=== PATIENT | male | born 1955 | race African-American/Black ===

== ENCOUNTER 2022-01-08 11:15 | Emergency (ER) | payer MEDICARE ==
[~2022-01-08] VITALS: Ht 193 cm; Wt 76.0 kg
[2022-01-08 12:50] LABS: BASOPHILS % 0.5 % (0.0-2.0); EOSINOPHILS % 3.9 % (0.0-5.0); HEMATOCRIT. 29.7 % (42.0-52.0); LYMPHOCYTES % 7.8 % (20.0-50.0); MEAN CORPUSCULAR HEMOGLOBIN 28.8 pg (28.0-32.0); MEAN CORPUSCULAR VOLUME 85.9 fL (80.0-94.0); MEAN PLATELET VOLUME 8.1 fl (7.4-10.4); MONOCYTES % 5.2 % (2.0-8.0); NEUTROPHILS % 82.6 % (40.0-76.0); PLATELET 234 x1000/uL (130-400); RED BLOOD CELL COUNT 3.46 mill/uL (4.7-6.1); RED CELL DISTRIBUTION WIDTH 13.2 % (11.6-14.6)
[2022-01-08 12:54] LABS: CHLORIDE 100 mEq/L (98-107)
[2022-01-08] MEDS ORDERED: KETOROLAC 15MG/ML VIAL IV ONE (14:30)
[2022-01-08 16:11] VITALS: BP 117/71
== END 2022-01-08 16:14 | disposition home or self-care (01) ==
LOC: ER 11:15
DX: C64.2 Malignant neoplasm of left kidney, except renal pelvis (principal); C79.72 Secondary malignant neoplasm of left adrenal gland; J98.4 Other disorders of lung; N40.0 Benign prostatic hyperplasia without lower urinary tract symptoms; F17.210 Nicotine dependence, cigarettes, uncomplicated; Z71.6 Tobacco abuse counseling
CPT/HCPCS: 36415; 71045; 71250; 74176; 80053; 83880; 84484; 85025; 93005; 96374; 99285; 99406; J1885

== ENCOUNTER 2022-01-13 15:01 | Emergency (ER) | payer MEDICARE ==
[~2022-01-13] VITALS: Ht 193 cm; Wt 77.0 kg
[2022-01-13 15:37] VITALS: BP 123/81
[2022-01-13] MEDS ORDERED: HYDR-4001 MT (17:31)
[2022-01-13] MEDS ORDERED: HYDROCODONE/ACETAMINOPHEN 5/325MG TABLET PO ONE (18:00)
== END 2022-01-13 17:50 | disposition home or self-care (01) ==
LOC: ER 15:01
DX: R10.12 Left upper quadrant pain (principal); C64.2 Malignant neoplasm of left kidney, except renal pelvis; C79.89 Secondary malignant neoplasm of other specified sites
CPT/HCPCS: 99283